=== PATIENT | female | born 1975 | race Two or more races ===

== ENCOUNTER 2025-01-08 20:06 | Emergency (ER) | payer OTHER ==
[~2025-01-08] VITALS: Ht 160 cm; Wt 131.5 kg
[2025-01-08] MEDS ORDERED: SYNTHROID175 MCG (20:24)
[2025-01-08] MEDS ORDERED: SYNTHROID150 MCG (20:24)
[2025-01-08 20:26] VITALS: BP 150/80; O2SAT 98
[2025-01-08] MEDS ORDERED: KETOROLAC TROMETHAMINE 30 MG VIAL IM STA (21:30)
[2025-01-08] MEDS ORDERED: ORPHENADRINE CITRATE 30 MG/ML AMPUL IM STA (21:30)
[2025-01-08] MEDS ORDERED: ORPHENADRINE CITRATE 30 MG/ML AMPUL ONE (21:37)
== END 2025-01-08 21:52 | disposition home or self-care (01) ==
LOC: ER 20:09
DX: M54.2 Cervicalgia (principal); M25.511 Pain in right shoulder; Z88.0 Allergy status to penicillin; Z88.8 Allergy status to other drugs, medicaments and biological substances

== ENCOUNTER 2025-02-10 10:04 | Emergency (ER) | payer OTHER ==
[~2025-02-10] VITALS: Ht 152.4 cm; Wt 131.5 kg
[~2025-02-10 10:04] MED LIST: SYNTHROID150 MCG; SYNTHROID175 MCG
[2025-02-10] MEDS ORDERED: LISINOPRIL2.5 MG (11:08)
[2025-02-10] MEDS ORDERED: GLUMETZA500 MG PO (11:08)
[2025-02-10] MEDS ORDERED: KETOROLAC TROMETHAMINE 60 MG VIAL IM STA (11:59)
[2025-02-10 13:31] LABS: HEMATOCRIT 35.7 % (36.0-45.00); HEMOGLOBIN 11.9 g/dL (12.0-15.00); MEAN CORPUSCULAR HEMOGLOBIN 27.9 pg (27.00-32.0); MEAN CORPUSCULAR HGB CONC 33.3 g/dl (32.0-36.0); PLATELET COUNT 388 K/uL (150-450); RED BLOOD COUNT 4.25 M/uL (4.00-6.00); RED CELL DISTRIBUTION WIDTH 16.4 % (11.5-14.5)
== END 2025-02-10 16:05 | disposition home or self-care (01) ==
LOC: ER 10:05
DX: R53.81 Other malaise (principal); J06.9 Acute upper respiratory infection, unspecified; Z20.822 Contact with and (suspected) exposure to COVID-19; Z88.6 Allergy status to analgesic agent